=== PATIENT | female | born 1985 | race African-American/Black ===

== ENCOUNTER 2017-09-04 05:21 | Emergency (ER) | payer OTHER ==
[~2017-09-04] VITALS: Ht 162.6 cm; Wt 83.9 kg
[~2017-09-04 05:21] MED LIST: DAR100 PO; ESTRACE0.5 MG PO; IMITREX50 MG PO; SOM350 PO; TRAMADOL50 M1 PO; ZOL100 PO
[2017-09-04 05:29] VITALS: Ht 162.6 cm; Wt 83.9 kg
[2017-09-04 06:41] VITALS: BP 126/91
== END 2017-09-04 06:41 | disposition home or self-care (01) ==
LOC: ED 05:21
DX: G43.909 Migraine, unspecified, not intractable, without status migrainosus (principal); M54.5 Low back pain; Z88.2 Allergy status to sulfonamides

== ENCOUNTER 2017-11-06 01:01 | Emergency (ER) | payer OTHER ==
[2017-11-06 01:09] VITALS: BP 118/91
== END 2017-11-06 01:55 | disposition home or self-care (01) ==
LOC: ED 01:01
DX: M54.5 Low back pain (principal); G47.9 Sleep disorder, unspecified; Z88.6 Allergy status to analgesic agent

== ENCOUNTER 2018-02-23 14:41 | Emergency (ER) | payer OTHER ==
[~2018-02-23] VITALS: Ht 165.1 cm; Wt 83.9 kg
[2018-02-23 14:53] VITALS: Ht 165.1 cm; Wt 83.9 kg
[2018-02-23 16:45] VITALS: BP 120/75
[2018-02-23 17:48] LABS: microscopic required? YES; urine erythrocyte NEGATIVE (NEGATIVE)
== END 2018-02-23 16:45 | disposition home or self-care (01) ==
LOC: ED 14:41
PROVIDERS: Emergency Medicine
DX: N39.0 Urinary tract infection, site not specified (principal); Z88.6 Allergy status to analgesic agent
CPT/HCPCS: 87491; 87591

== ENCOUNTER 2019-09-29 18:03 | Emergency (ER) | payer OTHER ==
[~2019-09-29] VITALS: Ht 162.6 cm; Wt 68.5 kg
[2019-09-29 18:26] VITALS: Ht 162.6 cm; Wt 68.5 kg
[2019-09-29 20:10] VITALS: BP 121/80
== END 2019-09-29 20:10 | disposition home or self-care (01) ==
LOC: ED 18:03
DX: M25.562 Pain in left knee (principal); Z88.6 Allergy status to analgesic agent